=== PATIENT | male | born 1955 | race Caucasian/White ===

== ENCOUNTER 2020-10-17 05:45 | Inpatient (IN) | payer MEDICAID ==
[~2020-10-17] VITALS: Ht 188 cm; Wt 78.8 kg
--- NOTE | 2020-10-17 05:59 | NUR ---
BROUGHT IN BY [facility] TRANSFER FROM [place]. C/O SOB X 3 DAYS. DX WITH COVID PNA. PATIENT OXYGEN SATS 72 % RA. RECEIVED ON 5 LITERS NC @ 91-93 % , PATIENT WAS PLACED ON LEVOPHED DUE TO HYPOTENSION. LEVOPHED STOPPED UPON ARRIVAL TO ED.
--- NOTE | 2020-10-17 06:07 | NUR ---
ASSESSMENT MADE. ERP AT BEDSIDE. WILL CONTINUE LEVOPHED IF PATIENT STILL HYPOTENSIVE.
[2020-10-17] MEDS: NOREPINEPHRINE 8 MG in SODIUM CHLORIDE 0.9% 242 ML IV PRN ×2 (06:30→21:11)
--- NOTE | 2020-10-17 06:39 | NUR ---
PATIENT HAD A TOTAL 3 LITERS OF NS CHANGE MANAGEMENT. LEVOPHED RE-STARTED.
--- NOTE | 2020-10-17 06:40 | NUR ---
X RAY DONE. BLOOD AND BC X 2 DRAWN BY REPAIR WELDER.
--- NOTE | 2020-10-17 06:50 | NUR ---
REPORT FROM JUAN JOSE POSEY WITH ASSESSMENT PATIENT BRAYCARDIC YET SLIGHTLY HYPERTENSIVE 158/68 ON 6L NC WITH RR IN THE 20S. DRY ALMOST WHEEZY BS INTERVENTIONS: NC SWITCHED TO OXYMASK AT 6L, LEVO TITRATED TO .15, ERP ASKED ABOUT STEROID/ABX/BREATHING TREATMENT ( REVIEW OF RECORDS FROM [facility] PATIENT GOT 3L OF NS, ASA AND LOVENOX AND NO OTHER MEDS)
[2020-10-17 06:53] LABS: ALANINE AMINOTRANSFERASE 18 U/L (12-78); ALBUMIN 2.6 g/dL (3.4-5.0); ANION GAP 10 mmol/L (5-15); CHLORIDE 107 mmol/L (98-107); CREATININE 2.21 mg/dL (0.7-1.3)
[2020-10-17 06:56] LABS: BASOPHILS % (AUTO) 0 % (0-1); EOSINOPHILS % (AUTO) 0 % (1-7); LYMPHOCYTES % (AUTO) 18 % (22-44); MEAN CORPUSCULAR HEMOGLOBIN 29.6 pg (27.5-34.5); MEAN CORPUSCULAR HGB CONC 34.2 g/dL (33.2-36.2); MEAN PLATELET VOLUME 8.4 fL (7.4-10.4); MONOCYTES % (AUTO) 7 % (2-9); NEUTROPHILS % (AUTO) 75 % (42-75); PLATELET COUNT 170 x10^3/uL (130-400); RED BLOOD COUNT 3.79 x10^6/uL (4.38-5.82); RED CELL DISTRIBUTION WIDTH 15.5 % (9.4-14.8)
[2020-10-17 06:57] LABS: D-DIMER (DIC) 0.63 ug/mlFEU (0.00-0.52); PROTIME 11.8 Seconds (9.6-11.5)
[2020-10-17 06:59] LABS: ALKALINE PHOSPHATASE 91 U/L (45-117); BILIRUBIN,TOTAL 0.4 mg/dL (0.2-1.0); TOTAL PROTEIN 6.4 g/dL (6.4-8.2)
--- NOTE | 2020-10-17 06:59 | NUR ---
REPORT TO TATY DEXTER
[2020-10-17] MEDS ORDERED: ALBUTEROL/IPRATROPIUM 2.5MG/0.5MG, 3 ML NPPB SCH (08:00)
[2020-10-17] MEDS ORDERED: ALBUTEROL/IPRATROPIUM 2.5MG/0.5MG, 3 ML ONE (08:31)
--- NOTE | 2020-10-17 08:49 | NUR ---
[facility] MED[facility] REVIEWED NO STEROID OR ABX-ERP ASKED FOR ORDERS LEVO TO .05 BREATHING TREATMENT ADMINISTERED
[2020-10-17] MEDS ORDERED: DEXAMETHASONE 4 MG/ML, 1ML IVPush ONE (09:00)
--- NOTE | 2020-10-17 09:00 | NUR ---
POST BREATHING TREATMENT WOB/WHEEZING IMPROVED FROM 08/15 TO 5. PATIENT REPORTS, "I FEEL A LITTLE BETTER
[2020-10-17] MEDS ORDERED: DEXAMETHASONE 4 MG/ML, 1ML ONE (09:20)
[2020-10-17] MEDS ORDERED: ONDANSETRON 2MG/ML, 2ML IVPush PRN (10:00)
[2020-10-17] MEDS ORDERED: ACETAMINOPHEN 325 MG TABLET PO PRN (10:00)
[2020-10-17] MEDS ORDERED: CEFTRIAXONE 2 GM in DEXTROSE 5% 50 ML IVPB SCH (10:00)
[2020-10-17] MEDS ORDERED: GUAIFENESIN/COD200MG-20MG/10ML LIQUID PO PRN (10:00)
--- NOTE | 2020-10-17 10:26 | NUR ---
rocephin 2gm requested from pharmacy
--- NOTE | 2020-10-17 10:41 | NUR ---
FAMILY CONTACT (CALL FIRST) SON: NAKUL [phone]
--- NOTE | 2020-10-17 10:45 | NUR ---
ABX 1/2 STARTED (BLOOD CULTURES X 2 ALREADY DRAWN AND IN LAB) SAMPLE FROM [facility] LUNSFORD SENT, LUNSFORD THEN REPLACED RECTAL PROBLE PLACED FOR TEMP MONITORING ALIX-CARE PERFORMED AND SACRAL PRESSURE DRESSING PLACED RIGHT GROIN CENTRAL LINE DRESSING CHANGED
[2020-10-17 10:49] LABS: FREE T4 (FREE THYROXINE) 1.25 ng/dL (0.76-1.46)
[2020-10-17] MEDS: AZITHROMYCIN 500 MG in SODIUM CHLORIDE 0.9% 250 ML IV SCH (11:20)
[2020-10-17] MEDS ORDERED: REMDESIVIR 200 MG in SODIUM CHLORIDE 0.9% 100 ML IVPB ONE (11:30)
[2020-10-17 11:50] LABS: MICROSCOPIC INDICATED
[2020-10-17 11:56] LABS: CHLORIDE,URINE RANDOM 34 mmol/L; POTASSIUM,URINE RANDOM 11 mmol/L; SODIUM,URINE RANDOM 49 mmol/L
[2020-10-17] MEDS ORDERED: HEPARIN 5,000 UNITS/ML, 1ML ONE ×2 (12:27→18:40)
[2020-10-17] MEDS ORDERED: NICOTINE 14MG/24 HR PATCH.TD24 ONE (12:27)
[2020-10-17] MEDS ORDERED: ZINC SULFATE 220 MG CAPSULE ONE (12:28)
[2020-10-17] MEDS ORDERED: CHOLECALCIFEROL 1,000 UNIT TABLET ONE (12:28)
[2020-10-17] MEDS ORDERED: ACETAMINOPHEN 325 MG TABLET ONE (12:32)
[2020-10-17] MEDS ORDERED: ONDANSETRON 2MG/ML, 2ML ONE (12:32)
[2020-10-17] MEDS: ZINC SULFATE 220 MG CAPSULE PO SCH (12:54)
[2020-10-17] MEDS: CHOLECALCIFEROL 1,000 UNIT TABLET PO SCH (12:57)
[2020-10-17] MEDS: NICOTINE 14MG/24 HR PATCH.TD24 TD SCH (12:59)
[2020-10-17] MEDS: HEPARIN 5,000 UNITS/ML, 1ML SQ SCH ×2 (13:00→18:43)
--- NOTE | 2020-10-17 13:44 | NUR ---
aprovided with meal tray as levophed only at 0.07. patient tolerated well
--- NOTE | 2020-10-17 15:01 | NUR ---
PATIENT TURNED TO RIGHT SIDE, RLE WOUND CLEANSED WITH SOAP/WATER THEN SILICONE DRESSING PLACED BILATERAL SCDS PLACED AND HEELS FLOATED ON PILLOWS
--- NOTE | 2020-10-17 15:07 | NUR ---
VITALS OBTAINED Q15. D/T HIGH ACUITY IN ER (SERVICES PROGRAM MANAGER ATTENDING TO NUMEROUS PATIENT) VITALS NOT INPUT IN [place], RATHER PRINTED AND PLACED ON PATIENT'S CHART
--- NOTE | 2020-10-17 17:43 | NUR ---
DR. YENY FERNANDEZ (NEUROLOGIST) ASSESSING VIA [facility] Addendum: 10/17/20 at 1801 by RFCHARLESING DISREGARD PRIOR NOTE
[2020-10-17] MEDS ORDERED: ASCORBIC ACID 500 MG TABLET ONE (18:40)
[2020-10-17] MEDS: ASCORBIC ACID 500 MG TABLET PO SCH (18:43)
--- NOTE | 2020-10-17 18:47 | NUR ---
PATIENT LUNSFORD DRAINED (WITH ROUGHLY 1.5 LITERS OUT TODAY) PATIENT NOW WITH MUCH MORE ENERGY-SITTING UP EATING -HOWEVER STILL REQUIRING LEVOPHED REPORT TO KIMBERLEY POSEY
[2020-10-17] MEDS: MELATONIN 5 MG TABLET PO SCH (21:11)
[2020-10-17] MEDS: THIAMINE 100MG TABLET PO SCH (21:11)
[2020-10-18] MEDS: HEPARIN 5,000 UNITS/ML, 1ML SQ SCH (01:43)
[2020-10-18 03:57] LABS: BASOPHILS % (AUTO) 0 % (0-1); EOSINOPHILS % (AUTO) 0 % (1-7); LYMPHOCYTES % (AUTO) 9 % (22-44); MEAN CORPUSCULAR HEMOGLOBIN 29.5 pg (27.5-34.5); MEAN CORPUSCULAR HGB CONC 33.8 g/dL (33.2-36.2); MEAN PLATELET VOLUME 8.4 fL (7.4-10.4); MONOCYTES % (AUTO) 8 % (2-9); NEUTROPHILS % (AUTO) 83 % (42-75); PLATELET COUNT 216 x10^3/uL (130-400); RED BLOOD COUNT 4.17 x10^6/uL (4.38-5.82)
[2020-10-18 04:03] LABS: ANION GAP 4 mmol/L (5-15); CALCIUM 8.5 mg/dL (8.5-10.1); CHLORIDE 112 mmol/L (98-107); CREATININE 1.47 mg/dL (0.7-1.3)
[2020-10-18 04:04] LABS: ALANINE AMINOTRANSFERASE 19 U/L (12-78); ALBUMIN 2.4 g/dL (3.4-5.0)
[2020-10-18 04:06] LABS: ALKALINE PHOSPHATASE 105 U/L (45-117); BILIRUBIN,TOTAL 0.2 mg/dL (0.2-1.0)
[2020-10-18] MEDS ORDERED: FUROSEMIDE 40 MG/4 ML IV SCH (09:00)
[2020-10-18] MEDS: CHOLECALCIFEROL 1,000 UNIT TABLET PO SCH (09:00)
[2020-10-18] MEDS: THIAMINE 100MG TABLET PO SCH ×2 (09:00→19:43)
[2020-10-18] MEDS: AMPICILLIN/SULBACTAM 1,500 MG in SODIUM CHLORIDE 0.9% 50 ML IV SCH ×2 (12:02→17:31)
[2020-10-18] MEDS: ENOXAPARIN 60 MG/0.6 ML SQ SCH (12:07)
[2020-10-18] MEDS: DEXAMETHASONE 4 MG/ML, 1ML IVPush SCH (12:07)
[2020-10-18] MEDS: FAMOTIDINE 20 MG TABLET PO SCH (12:08)
[2020-10-18] MEDS: ZINC SULFATE 220 MG CAPSULE PO SCH (12:08)
[2020-10-18] MEDS: ASCORBIC ACID 500 MG TABLET PO SCH ×2 (12:09→17:31)
[2020-10-18] MEDS: REMDESIVIR 100 MG in SODIUM CHLORIDE 0.9% 100 ML IVPB SCH (12:51)
[2020-10-18] MEDS: NICOTINE 14MG/24 HR PATCH.TD24 TD SCH (12:51)
[2020-10-18] MEDS: AZITHROMYCIN 500 MG in SODIUM CHLORIDE 0.9% 250 ML IV SCH (13:42)
[2020-10-18] MEDS: MELATONIN 5 MG TABLET PO SCH (19:43)
[2020-10-18] MEDS: NOREPINEPHRINE 8 MG in SODIUM CHLORIDE 0.9% 242 ML IV PRN (23:19)
[2020-10-19] MEDS: AMPICILLIN/SULBACTAM 1,500 MG in SODIUM CHLORIDE 0.9% 50 ML IV SCH ×5 (00:36→23:52)
[2020-10-19 03:54] LABS: BASOPHILS % (AUTO) 1 % (0-1); EOSINOPHILS % (AUTO) 0 % (1-7); LYMPHOCYTES % (AUTO) 5 % (22-44); MEAN CORPUSCULAR HEMOGLOBIN 28.9 pg (27.5-34.5); MEAN CORPUSCULAR HGB CONC 33.2 g/dL (33.2-36.2); MEAN PLATELET VOLUME 8.7 fL (7.4-10.4); MONOCYTES % (AUTO) 8 % (2-9); NEUTROPHILS % (AUTO) 86 % (42-75); PLATELET COUNT 250 x10^3/uL (130-400); RED BLOOD COUNT 4.01 x10^6/uL (4.38-5.82); RED CELL DISTRIBUTION WIDTH 15.7 % (9.4-14.8)
[2020-10-19 04:01] LABS: ANION GAP 5 mmol/L (5-15); CALCIUM 7.9 mg/dL (8.5-10.1); CHLORIDE 110 mmol/L (98-107); CREATININE 1.16 mg/dL (0.7-1.3)
[2020-10-19] MEDS: ZINC SULFATE 220 MG CAPSULE PO SCH (08:02)
[2020-10-19] MEDS: CHOLECALCIFEROL 1,000 UNIT TABLET PO SCH (08:02)
[2020-10-19] MEDS: FAMOTIDINE 20 MG TABLET PO SCH (08:03)
[2020-10-19] MEDS: FUROSEMIDE 40 MG/4 ML IV SCH ×2 (08:03→22:08)
[2020-10-19] MEDS: THIAMINE 100MG TABLET PO SCH ×2 (08:03→22:07)
[2020-10-19] MEDS: ASCORBIC ACID 500 MG TABLET PO SCH ×2 (08:03→17:15)
[2020-10-19] MEDS: DEXAMETHASONE 4 MG/ML, 1ML IVPush SCH (08:03)
[2020-10-19] MEDS: ENOXAPARIN 60 MG/0.6 ML SQ SCH (09:32)
[2020-10-19] MEDS: AZITHROMYCIN 500 MG in SODIUM CHLORIDE 0.9% 250 ML IV SCH (09:32)
[2020-10-19] MEDS: QUETIAPINE 25MG TABLET PO SCH ×2 (10:41→22:08)
[2020-10-19] MEDS: REMDESIVIR 100 MG in SODIUM CHLORIDE 0.9% 100 ML IVPB SCH (12:00)
[2020-10-19] MEDS: NICOTINE 14MG/24 HR PATCH.TD24 TD SCH (12:30)
[2020-10-19] MEDS: MELATONIN 5 MG TABLET PO SCH (22:08)
[2020-10-20] MEDS: NOREPINEPHRINE 8 MG in SODIUM CHLORIDE 0.9% 242 ML IV PRN ×2 (01:42→22:23)
[2020-10-20 04:19] LABS: BASOPHILS % (AUTO) 1 % (0-1); EOSINOPHILS % (AUTO) 0 % (1-7); LYMPHOCYTES % (AUTO) 6 % (22-44); MEAN CORPUSCULAR HEMOGLOBIN 28.7 pg (27.5-34.5); MEAN CORPUSCULAR HGB CONC 33.3 g/dL (33.2-36.2); MONOCYTES % (AUTO) 10 % (2-9); NEUTROPHILS % (AUTO) 84 % (42-75); PLATELET COUNT 299 x10^3/uL (130-400); RED BLOOD COUNT 4.26 x10^6/uL (4.38-5.82); RED CELL DISTRIBUTION WIDTH 15.7 % (9.4-14.8)
[2020-10-20 04:27] LABS: ANION GAP 7 mmol/L (5-15); CALCIUM 8.3 mg/dL (8.5-10.1); CHLORIDE 107 mmol/L (98-107); CREATININE 1.08 mg/dL (0.7-1.3)
[2020-10-20] MEDS: AMPICILLIN/SULBACTAM 1,500 MG in SODIUM CHLORIDE 0.9% 50 ML IV SCH ×4 (05:37→22:23)
[2020-10-20] MEDS: QUETIAPINE 25MG TABLET PO SCH ×2 (08:38→20:53)
[2020-10-20] MEDS: CHOLECALCIFEROL 1,000 UNIT TABLET PO SCH (08:38)
[2020-10-20] MEDS: ZINC SULFATE 220 MG CAPSULE PO SCH (08:38)
[2020-10-20] MEDS: THIAMINE 100MG TABLET PO SCH ×2 (08:38→20:53)
[2020-10-20] MEDS: ASCORBIC ACID 500 MG TABLET PO SCH ×2 (08:38→16:38)
[2020-10-20] MEDS: FUROSEMIDE 40 MG/4 ML IV SCH ×2 (08:38→20:52)
[2020-10-20] MEDS: FAMOTIDINE 20 MG TABLET PO SCH (08:39)
[2020-10-20] MEDS: DEXAMETHASONE 4 MG/ML, 1ML IVPush SCH (08:39)
[2020-10-20] MEDS: ENOXAPARIN 60 MG/0.6 ML SQ SCH (10:24)
[2020-10-20] MEDS: AZITHROMYCIN 500 MG in SODIUM CHLORIDE 0.9% 250 ML IV SCH (10:24)
[2020-10-20] MEDS: REMDESIVIR 100 MG in SODIUM CHLORIDE 0.9% 100 ML IVPB SCH (11:47)
[2020-10-20] MEDS: NICOTINE 14MG/24 HR PATCH.TD24 TD SCH (14:07)
[2020-10-20] MEDS ORDERED: MIDODRINE 5 MG TABLET ONE (16:31)
[2020-10-20] MEDS: MIDODRINE 5 MG TABLET PO SCH (16:38)
[2020-10-20] MEDS: MELATONIN 5 MG TABLET PO SCH (20:53)
[2020-10-20] MEDS: MORPHINE SULFATE 4 MG/ML, 1ML IV PRN (23:13)
[2020-10-21 03:48] LABS: BASOPHILS % (AUTO) 0 % (0-1); EOSINOPHILS % (AUTO) 0 % (1-7); LYMPHOCYTES % (AUTO) 15 % (22-44); MEAN CORPUSCULAR HEMOGLOBIN 29.3 pg (27.5-34.5); MEAN CORPUSCULAR HGB CONC 33.7 g/dL (33.2-36.2); MEAN PLATELET VOLUME 7.8 fL (7.4-10.4); MONOCYTES % (AUTO) 12 % (2-9); NEUTROPHILS % (AUTO) 72 % (42-75); PLATELET COUNT 291 x10^3/uL (130-400); RED BLOOD COUNT 4.23 x10^6/uL (4.38-5.82); RED CELL DISTRIBUTION WIDTH 15.9 % (9.4-14.8)
[2020-10-21 03:59] LABS: ALANINE AMINOTRANSFERASE 22 U/L (12-78); ALBUMIN 2.6 g/dL (3.4-5.0); ANION GAP 6 mmol/L (5-15); CALCIUM 8.1 mg/dL (8.5-10.1); CHLORIDE 104 mmol/L (98-107); CREATININE 1.01 mg/dL (0.7-1.3)
[2020-10-21 04:01] LABS: ALKALINE PHOSPHATASE 95 U/L (45-117); BILIRUBIN,TOTAL 0.5 mg/dL (0.2-1.0); TOTAL PROTEIN 6.8 g/dL (6.4-8.2)
[2020-10-21] MEDS: AMPICILLIN/SULBACTAM 1,500 MG in SODIUM CHLORIDE 0.9% 50 ML IV SCH ×3 (05:23→18:24)
[2020-10-21] MEDS: ZINC SULFATE 220 MG CAPSULE PO SCH (08:09)
[2020-10-21] MEDS: MIDODRINE 5 MG TABLET PO SCH ×3 (08:10→20:16)
[2020-10-21] MEDS: CHOLECALCIFEROL 1,000 UNIT TABLET PO SCH (08:10)
[2020-10-21] MEDS: QUETIAPINE 25MG TABLET PO SCH ×2 (08:10→20:16)
[2020-10-21] MEDS: THIAMINE 100MG TABLET PO SCH ×2 (08:10→20:16)
[2020-10-21] MEDS: ASCORBIC ACID 500 MG TABLET PO SCH ×2 (08:11→16:50)
[2020-10-21] MEDS: DEXAMETHASONE 4 MG/ML, 1ML IVPush SCH (08:11)
[2020-10-21] MEDS: FUROSEMIDE 40 MG/4 ML IV SCH ×2 (08:18→20:16)
[2020-10-21] MEDS: FAMOTIDINE 20 MG TABLET PO SCH (08:18)
[2020-10-21] MEDS: AZITHROMYCIN 500 MG in SODIUM CHLORIDE 0.9% 250 ML IV SCH (11:49)
[2020-10-21] MEDS: ENOXAPARIN 60 MG/0.6 ML SQ SCH (11:49)
[2020-10-21] MEDS: REMDESIVIR 100 MG in SODIUM CHLORIDE 0.9% 100 ML IVPB SCH (13:51)
[2020-10-21] MEDS: NICOTINE 14MG/24 HR PATCH.TD24 TD SCH (13:55)
[2020-10-21] MEDS: MORPHINE SULFATE 4 MG/ML, 1ML IV PRN (20:16)
[2020-10-21] MEDS: MELATONIN 5 MG TABLET PO SCH (20:17)
[2020-10-22] VITALS (9 sets, daily range): BP systolic 78–109; BP diastolic 38–62
[2020-10-22] MEDS: AMPICILLIN/SULBACTAM 1,500 MG in SODIUM CHLORIDE 0.9% 50 ML IV SCH ×4 (00:18→18:40)
[2020-10-22] MEDS: THIAMINE 100MG TABLET PO SCH ×2 (08:27→21:46)
[2020-10-22] MEDS: QUETIAPINE 25MG TABLET PO SCH ×2 (08:27→21:46)
[2020-10-22] MEDS: CHOLECALCIFEROL 1,000 UNIT TABLET PO SCH (08:27)
[2020-10-22] MEDS: ASCORBIC ACID 500 MG TABLET PO SCH ×2 (08:27→15:49)
[2020-10-22] MEDS: FAMOTIDINE 20 MG TABLET PO SCH (08:27)
[2020-10-22] MEDS: ZINC SULFATE 220 MG CAPSULE PO SCH (08:28)
[2020-10-22] MEDS: DEXAMETHASONE 4 MG/ML, 1ML IVPush SCH (08:28)
[2020-10-22] MEDS: ENOXAPARIN 60 MG/0.6 ML SQ SCH (08:28)
[2020-10-22] MEDS: FUROSEMIDE 40 MG/4 ML IV SCH ×2 (08:28→21:47)
[2020-10-22] MEDS: MIDODRINE 5 MG TABLET PO SCH ×3 (08:28→21:46)
[2020-10-22] MEDS: AZITHROMYCIN 500 MG in SODIUM CHLORIDE 0.9% 250 ML IV SCH (09:59)
[2020-10-22] MEDS ORDERED: MAGNESIUM SULFATE PMX 2GM/50ML 50 ML IVPB ONE (10:00)
[2020-10-22] MEDS: POTASSIUM ACID PHOSPHATE 500 MG TABLET.SOL PO SCH ×3 (10:57→22:01)
[2020-10-22] MEDS: NICOTINE 14MG/24 HR PATCH.TD24 TD SCH ×2 (12:00→21:52)
[2020-10-22] MEDS: MELATONIN 5 MG TABLET PO SCH (21:46)
[2020-10-23] MEDS: AMPICILLIN/SULBACTAM 1,500 MG in SODIUM CHLORIDE 0.9% 50 ML IV SCH ×2 (00:17→05:52)
[2020-10-23 00:48] VITALS: BP 73/46
[2020-10-23 01:07] VITALS: BP 96/54
[2020-10-23] MEDS: POTASSIUM ACID PHOSPHATE 500 MG TABLET.SOL PO SCH (05:52)
[2020-10-23 07:29] LABS: BASOPHILS % (AUTO) 0 % (0-1); EOSINOPHILS % (AUTO) 0 % (1-7); LYMPHOCYTES % (AUTO) 13 % (22-44); MEAN CORPUSCULAR HEMOGLOBIN 28.6 pg (27.5-34.5); MEAN CORPUSCULAR HGB CONC 32.8 g/dL (33.2-36.2); MEAN PLATELET VOLUME 7.8 fL (7.4-10.4); MONOCYTES % (AUTO) 13 % (2-9); NEUTROPHILS % (AUTO) 74 % (42-75); PLATELET COUNT 326 x10^3/uL (130-400); RED BLOOD COUNT 4.08 x10^6/uL (4.38-5.82); RED CELL DISTRIBUTION WIDTH 15.8 % (9.4-14.8)
[2020-10-23 07:42] LABS: ALANINE AMINOTRANSFERASE 18 U/L (12-78); ALBUMIN 2.6 g/dL (3.4-5.0); ANION GAP 6 mmol/L (5-15); CHLORIDE 104 mmol/L (98-107)
[2020-10-23 07:45] LABS: ALKALINE PHOSPHATASE 81 U/L (45-117); BILIRUBIN,TOTAL 0.6 mg/dL (0.2-1.0); TOTAL PROTEIN 6.5 g/dL (6.4-8.2)
[2020-10-23 07:52] VITALS: BP 94/56
[2020-10-23 07:52] LABS: D-DIMER 1.04 ug/mlFEU (0.00-0.52)
[2020-10-23 08:13] VITALS: BP 100/61
[2020-10-23] MEDS: ASCORBIC ACID 500 MG TABLET PO SCH (08:14)
[2020-10-23] MEDS: MIDODRINE 5 MG TABLET PO SCH (08:14)
[2020-10-23] MEDS: FUROSEMIDE 40 MG/4 ML IV SCH (08:14)
[2020-10-23] MEDS: THIAMINE 100MG TABLET PO SCH (08:14)
[2020-10-23] MEDS: CHOLECALCIFEROL 1,000 UNIT TABLET PO SCH (08:14)
[2020-10-23] MEDS: ZINC SULFATE 220 MG CAPSULE PO SCH (08:15)
[2020-10-23] MEDS: FAMOTIDINE 20 MG TABLET PO SCH (08:15)
[2020-10-23] MEDS: DEXAMETHASONE 4 MG/ML, 1ML IVPush SCH (08:15)
[2020-10-23] MEDS: QUETIAPINE 25MG TABLET PO SCH (08:15)
[2020-10-23] MEDS: ENOXAPARIN 60 MG/0.6 ML SQ SCH (09:53)
== END 2020-10-23 11:47 | disposition left against medical advice (07) | DRG 720 ==
LOC: ED 07:15 → EDIP 07:20 → ICU 20:09 → 3N 10-22 16:17
PROVIDERS: ADMIT Hospitalist; ATTEND Family Medicine
PROC: XW033E5 Introduction of Remdesivir Anti-infective into Peripheral Vein, Percutaneous Approach, New Technology Group 5 (ICD-10-PCS; 2020-10-17)
PROC: 02HV33Z Insertion of Infusion Device into Superior Vena Cava, Percutaneous Approach (ICD-10-PCS; principal; 2020-10-19)
PROC: B548ZZA Ultrasonography of Superior Vena Cava, Guidance (ICD-10-PCS; 2020-10-19)
DX: A41.89 Other specified sepsis (principal); J96.01 Acute respiratory failure with hypoxia; J12.82 Pneumonia due to coronavirus disease 2019; N17.0 Acute kidney failure with tubular necrosis; R65.21 Severe sepsis with septic shock; E83.39 Other disorders of phosphorus metabolism; D64.9 Anemia, unspecified; B95.2 Enterococcus as the cause of diseases classified elsewhere; E78.5 Hyperlipidemia, unspecified; F17.210 Nicotine dependence, cigarettes, uncomplicated; I10 Essential (primary) hypertension; I87.2 Venous insufficiency (chronic) (peripheral); N39.0 Urinary tract infection, site not specified; U07.1 COVID-19
CPT/HCPCS: 36415; 36573; 71045; 80048; 80053; 81001; 82436; 82533; 82550; 82570; 82728; 82962; 83605; 83615; 83735; 84100; 84133; 84145; 84300; 84439; 84443; 85025; 85049; 85379; 85384; 85610; 85730; 86140; 87040; 87077; 87081; 87086; 87186; 93005; 96374; 96375; 99291; G0378; J0456; J0696; J1100; J1644; J1650; J1940; J2405; C1751; J0295; J2270; J3475; J7050